=== PATIENT | male | born 1980 | race Caucasian/White ===

== ENCOUNTER 2020-03-03 12:18 | Outpatient (NON) | payer OTHER, SELFPAY ==
[2020-03-04 00:19] LABS: SARS-CoV-2 RNA PCR Negative
== END 2020-03-03 12:19 ==
PROVIDERS: Visit Provider Internal Medicine
DX: Z20.828 Contact with and (suspected) exposure to other viral communicable diseases (principal); R09.89 Other specified symptoms and signs involving the circulatory and respiratory systems
CPT/HCPCS: 87635; C9803; U0003